=== PATIENT | male | born 1990 | race Caucasian/White ===

== ENCOUNTER 2017-07-07 19:51 | Emergency (ER) | payer SELFPAY ==
[~2017-07-07 19:51] MED LIST: LOR5/325 PO; METH-543 PO; ONDA4TAB PO; OXYC-865 PO
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
[2017-07-07] MEDS ORDERED: fentaNYL CITR 100 MCG/2 ML AMP IVP ONE (20:10)
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
[2017-07-07] MEDS ORDERED: APAP/HYDROCODONE 325/5 TAB PO ONE (22:35)
[2017-07-07] MEDS ORDERED: ACET/HYDROC 5/325MG TH ER ONLY 2 TAB/BOTTLE PO ONE (22:35)
[2017-07-07] MEDS ORDERED: LOR5/325 PO (22:36)
[2017-07-07 22:55] VITALS: BP 128/82
== END 2017-07-07 22:54 | disposition home or self-care (01) ==
LOC: ER 20:01
DX: S70.01XA Contusion of right hip, initial encounter (principal); S80.11XA Contusion of right lower leg, initial encounter; S83.91XA Sprain of unspecified site of right knee, initial encounter; S93.401A Sprain of unspecified ligament of right ankle, initial encounter; S80.811A Abrasion, right lower leg, initial encounter; V87.8XXA Person injured in other specified noncollision transport accidents involving motor vehicle (traffic), initial encounter
CPT/HCPCS: 72100; 73502; 73552; 73564; 73590; 73610; 96374; 99284; J3010

== ENCOUNTER 2017-08-15 20:04 | Emergency (ER) | payer SELFPAY ==
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
[2017-08-15] MEDS ORDERED: APAP/HYDROCODONE 325/5 TAB PO ONE (20:25)
--- NOTE | 2017-08-15 21:11 | RADIOLOGY IMAGING REPORT ---
FACILITY: [facility] [place] PATIENT NAME: Oscar Pierre : 1990 MR: [id number] V: [id number] EXAM DATE: ORDERING PHYSICIAN: KEVIN QUIROGA TECHNOLOGIST: Location: [facility] Patient: Oscar Pierre : 1990 Visit/Account:[id number] Date of Sevice: 08/15/2017 ANKLE 3 VIEW MIN RIGHT HISTORY: fall with pain Three-view examination right ankle FINDINGS: No acute fracture. The distal tibia and fibular well-maintained. Ankle mortise intact. No joint effus ion. The talus, calcaneus and mid foot structures are well-maintained. IMPRESSION: 1. Negative right ankle Report Dictated By: Ahmet Herrera MD at 08/15/2017 9:07 PM Report E-Signed By: Ahmet Herrera MD at 08/15/2017 9:08 PM WSN:[id number]
--- NOTE | 2017-08-15 21:12 | RADIOLOGY IMAGING REPORT ---
FACILITY: [facility] [place] PATIENT NAME: Oscar Pierre : 1990 MR: [id number] V: [id number] EXAM DATE: ORDERING PHYSICIAN: KEVIN QUIROGA TECHNOLOGIST: Location: [facility] [place] Patient: Oscar Pierre : 1990 Visit/Account:[id number] Date of Sevice: 08/15/2017 KNEE 4 VIEW RIGHT HISTORY: fall with pain 4 view examination FINDINGS: No acute bony pathology. The distal femur and proximal tibia/fibular well-maintained. Patella is inta ct. No patellar fracture. No joint effusion. On the AP film there is a slight medial offset of the pa tella but on the patellar sunrise views there is no patellar tilt or translation. IMPRESSION: 1 negative right knee for acute bony pathology Report Dictated By: Ahmet Herrera MD at 08/15/2017 9:08 PM Report E-Signed By: Ahmet Herrera MD at 08/15/2017 9:10 PM WSN:[id number]
[2017-08-15] MEDS ORDERED: HYDR-385 PO ×2 (21:35→21:39)
[2017-08-15] MEDS ORDERED: ACET/HYDROC 5/325MG TH ER ONLY 2 TAB/BOTTLE PO ONE (21:45)
[2017-08-15 21:56] VITALS: BP 128/58
== END 2017-08-15 21:56 | disposition home or self-care (01) ==
LOC: ER 20:25
DX: S83.91XA Sprain of unspecified site of right knee, initial encounter (principal); V86.56XA Driver of dirt bike or motor/cross bike injured in nontraffic accident, initial encounter; Y93.I9 Activity, other involving external motion
CPT/HCPCS: 73564; 99282; L1830

== ENCOUNTER 2017-09-03 20:19 | Emergency (ER) | payer SELFPAY ==
[~2017-09-03 20:19] MED LIST changes: +HYDR-385 PO
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
[2017-09-03] MEDS ORDERED: IBUPROFEN 600 MG TAB PO ONE (20:55)
[2017-09-03] MEDS ORDERED: ACET/HYDROC 5/325MG TH ER ONLY 2 TAB/BOTTLE PO ONE (21:55)
[2017-09-03 22:00] VITALS: BP 119/70
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
== END 2017-09-03 22:07 | disposition home or self-care (01) ==
LOC: ER 20:45
DX: S16.1XXA Strain of muscle, fascia and tendon at neck level, initial encounter (principal)
CPT/HCPCS: 72040; 99284

== ENCOUNTER 2017-10-28 22:04 | Emergency (ER) | payer SELFPAY ==
[2017-10-28] MEDS ORDERED: NS(*) 0.9% 1000 ML BAG 1,000 ML IV ONE (22:23)
--- NOTE | 2017-10-28 22:23 | ER Report ---
History and Physical Time Seen By MD: 22:15 HPI/ROS CHIEF COMPLAINT: Abdominal cramps HISTORY OF PRESENT ILLNESS: 27-year-old male presents ambulatory to the ER complaining of severe abdominal cramps. Patient states he's been doubled over for several hours with nausea and vomiting. He has history of multiple abdominal surgeries. He has chronic diarrhea. He notes that he ate a large amount of began yesterday, which causing his pain to be worse. She describes similar episodes that make him double over with severe crampy pain intermittently lasting several hours at a time. REVIEW OF SYSTEMS: Respiratory: No cough, no dyspnea. Cardiovascular: No chest pain, no palpitations. Gastrointestinal: As above Musculoskeletal: No back pain. Allergies: Coded Allergies: Penicillins (Verified Allergy, Severe, SEIZURE, 09/03/17) amoxicillin (Verified Allergy, Severe, seizure, 09/03/17) haloperidol (Verified Allergy, Severe, SEIZURES, FOAMING AT THE MOUTH, 09/03) Home Meds Active Scripts Dicyclomine Hcl (DICYCLOMINE HCL) 10 Mg Capsule, 1-2 MG PO QID Y for crampy abdominal pain relief, #60 CAPSULE Prov:FABIO LORENZO Benedict DO 10/28/17 Ondansetron (ZOFRAN ODT) 4 Mg Tab.rapdis, 4 MG PO every 6 hours Y for NAUSEA/ VOMITING, #15 TAB TAKE 1 TABLET BY MOUTH EVERY 12 HOURS Prov:BJFABIO Benedict DO 10/28/17 Lorazepam (ATIVAN) 1 Mg Tablet, 1 MG PO Q6H Y for ANXIETY, #15 Prov:FABIO LORENZO DO 10/28/17 Hydroxyzine Hcl (HYDROXYZINE HCL) 25 Mg Tablet, 1-2 CAP PO Q6H Y for vomiting, anxiety, itching, #30 Prov:FABIO LORENZO Benedict DO 10/28/17 Reviewed Nurses Notes: Yes Old Medical Records Reviewed: Yes Hx Substance Use Disorder: Yes (MARIJUANA) Hx Alcohol Use: Yes Constitutional Vital Sign - Last 24 Hours 10/28/17 10/28/17 10/28/17 10/28/17 22:09 22:10 22:19 22:30 Temp 98.1 Pulse 117 97 Resp 18 B/P (MAP) 146/96 146/96 (113) 141/82 (101) Pulse Ox 97 96 O2 Delivery Room Air 10/28/17 10/28/17 10/28/17 10/28/17 22:34 22:49 22:54 22:55 Pulse 95 91 Pulse Ox 95 84 98 O2 Flow Rate 2.0 10/28/17 10/28/17 10/28/17 10/28/17 23:00 23:24 23:30 23:35 Pulse 73 76 B/P (MAP) 125/78 (94) 122/59 (80) Pulse Ox 97 97 10/28/17 23:55 B/P (MAP) 122/77 (92) Physical Exam General Appearance: The patient is alert, has no immediate need for airway protection and no current signs of toxicity. Vital signs stable, afebrile, pulse ox normal HEENT: Pupils equal and round no injection. Oropharynx without redness or exudate Respiratory: Chest is non tender, lungs are clear to auscultation. Cardiac: regular rate and rhythm Gastrointestinal: Abdomen is soft, there are numerous well-healed surgical scars insistent with his past medical history. And non tender, no masses, bowel sounds normal. Musculoskeletal: Neck: Neck is supple and non tender. Extremities have full range of motion and are non tender. Skin: No rashes or lesions. DIFFERENTIAL DIAGNOSIS: After history and physical exam differential diagnosis was considered for abdominal pain including but not limited to appendicitis, cholecystitis, gastritis, bowel obstruction, colic, IBS and urinary tract infection. Medical Decision Making Data Points Result Diagram: 10/28/17222410/28/172224 Laboratory Hematology Test 10/28/17 22:10 10/28/17 22:25 Urine Color Yellow Urine Clarity Clear Urine pH 5.0 pH (4.8-9.5) Urine Specific [place] 1.020 Urine Protein Negative mg/dL (NEGATIVE) Urine Glucose (UA) Negative mg/dL (NEGATIVE) Urine Ketones Trace mg/dL (NEGATIVE) Urine Blood Negative (NEGATIVE) Urine Nitrite Negative (NEGATIVE) Urine Bilirubin Negative (NEGATIVE) Urine Urobilinogen 2.0 mg/dL (0.2-1.9) Urine Leukocyte Esterase Negative (NEGATIVE) Urine RBC <1 /HPF (0-2/HPF) Urine WBC 2 /HPF (0-5/HPF) Urine Squamous Epithelial Cells Few /LPF (</=FEW) Urine Bacteria Negative /HPF (NONE-FEW) Urine Mucus Few /HPF (NONE-FEW) Red Blood Count 4.93 M/uL (4.00-5.60) Mean Corpuscular Volume 87.5 fL (80.0-96.0) Mean Corpuscular Hemoglobin 30.1 pg (26.0-33.0) Mean Corpuscular Hemoglobin Concent 34.4 g/dL (32.0-36.0) Red Cell Distribution Width 17.5 % (11.5-14.5) Mean Platelet Volume 6.5 fL (7.2-11.1) Neutrophils (%) (Auto) 39.0 % (39.4-72.5) Lymphocytes (%) (Auto) 42.9 % (17.6-49.6) Monocytes (%) (Auto) 14.7 % (4.1-12.4) Eosinophils (%) (Auto) 1.2 % (0.4-6.7) Basophils (%) (Auto) 2.2 % (0.3-1.4) Nucleated RBC Relative Count (auto) 0.1 /100WBC Neutrophils # (Auto) 2.2 K/uL (2.0-7.4) Lymphocytes # (Auto) 2.4 K/uL (1.3-3.6) Monocytes # (Auto) 0.8 K/uL (0.3-1.0) Eosinophils # (Auto) 0.1 K/uL (0.0-0.5) Basophils # (Auto) 0.1 K/uL (0.0-0.1) Nucleated RBC Absolute Count (auto) 0.00 K/uL Sodium Level 140 mmol/L (137-145) Potassium Level 3.6 mmol/L (3.5-5.0) Chloride Level 105 mmol/L (98-107) Carbon Dioxide Level 20 mmol/L (22-30) Blood Urea Nitrogen 9 mg/dl (9-21) Creatinine 0.70 mg/dl (0.66-1.25) Glomerular Filtration Rate Calc > 60.0 Random Glucose 95 mg/dl (75-110) Calcium Level 8.9 mg/dl (8.4-10.2) Total Bilirubin 0.6 mg/dl (0.2-1.3) Aspartate Amino Transf (AST/SGOT) 45 U/L (0-35) Alanine Aminotransferase (ALT/SGPT) 36 U/L (0-56) Alkaline Phosphatase 97 U/L (0-126) Total Protein 7.8 g/dl (6.3-8.2) Albumin 4.3 g/dl (3.5-5.0) Amylase Level 135 U/L (0-110) Lipase 235 U/L (23-300) Chemistry Test 10/28/17 22:10 10/28/17 22:25 Urine Color Yellow Urine Clarity Clear Urine pH 5.0 pH (4.8-9.5) Urine Specific [place] 1.020 Urine Protein Negative mg/dL (NEGATIVE) Urine Glucose (UA) Negative mg/dL (NEGATIVE) Urine Ketones Trace mg/dL (NEGATIVE) Urine Blood Negative (NEGATIVE) Urine Nitrite Negative (NEGATIVE) Urine Bilirubin Negative (NEGATIVE) Urine Urobilinogen 2.0 mg/dL (0.2-1.9) Urine Leukocyte Esterase Negative (NEGATIVE) Urine RBC <1 /HPF (0-2/HPF) Urine WBC 2 /HPF (0-5/HPF) Urine Squamous Epithelial Cells Few /LPF (</=FEW) Urine Bacteria Negative /HPF (NONE-FEW) Urine Mucus Few /HPF (NONE-FEW) White Blood Count 5.6 k/uL (4.5-11.0) Red Blood Count 4.93 M/uL (4.00-5.60) Hemoglobin 14.8 g/dL (14.0-18.0) Hematocrit 43.1 % (42.0-52.0) Mean Corpuscular Volume 87.5 fL (80.0-96.0) Mean Corpuscular Hemoglobin 30.1 pg (26.0-33.0) Mean Corpuscular Hemoglobin Concent 34.4 g/dL (32.0-36.0) Red Cell Distribution Width 17.5 % (11.5-14.5) Platelet Count 348 K/uL (150-450) Mean Platelet Volume 6.5 fL (7.2-11.1) Neutrophils (%) (Auto) 39.0 % (39.4-72.5) Lymphocytes (%) (Auto) 42.9 % (17.6-49.6) Monocytes (%) (Auto) 14.7 % (4.1-12.4) Eosinophils (%) (Auto) 1.2 % (0.4-6.7) Basophils (%) (Auto) 2.2 % (0.3-1.4) Nucleated RBC Relative Count (auto) 0.1 /100WBC Neutrophils # (Auto) 2.2 K/uL (2.0-7.4) Lymphocytes # (Auto) 2.4 K/uL (1.3-3.6) Monocytes # (Auto) 0.8 K/uL (0.3-1.0) Eosinophils # (Auto) 0.1 K/uL (0.0-0.5) Basophils # (Auto) 0.1 K/uL (0.0-0.1) Nucleated RBC Absolute Count (auto) 0.00 K/uL Glomerular Filtration Rate Calc > 60.0 Calcium Level 8.9 mg/dl (8.4-10.2) Total Bilirubin 0.6 mg/dl (0.2-1.3) Aspartate Amino Transf (AST/SGOT) 45 U/L (0-35) Alanine Aminotransferase (ALT/SGPT) 36 U/L (0-56) Alkaline Phosphatase 97 U/L (0-126) Total Protein 7.8 g/dl (6.3-8.2) Albumin 4.3 g/dl (3.5-5.0) Amylase Level 135 U/L (0-110) Lipase 235 U/L (23-300) Urinalysis Test 10/28/17 22:10 Urine Color Yellow Urine Clarity Clear Urine pH 5.0 pH (4.8-9.5) Urine Specific [place] 1.020 Urine Protein Negative mg/dL (NEGATIVE) Urine Glucose (UA) Negative mg/dL (NEGATIVE) Urine Ketones Trace mg/dL (NEGATIVE) Urine Blood Negative (NEGATIVE) Urine Nitrite Negative (NEGATIVE) Urine Bilirubin Negative (NEGATIVE) Urine Urobilinogen 2.0 mg/dL (0.2-1.9) Urine Leukocyte Esterase Negative (NEGATIVE) Urine RBC <1 /HPF (0-2/HPF) Urine WBC 2 /HPF (0-5/HPF) Urine Squamous Epithelial Cells Few /LPF (</=FEW) Urine Bacteria Negative /HPF (NONE-FEW) Urine Mucus Few /HPF (NONE-FEW) EKG/Imaging Imaging X-ray: KUB was obtained. I viewed the images myself on the PACS system. My interpretation of the images is: Nonspecific bowel gas pattern, no evidence of bowel obstruction. The radiologist interpretation had no clinically significant variation from this interpretation. ED Course/Re-evaluation Clinical Indication for ER IV: Hydration, IV Access ED Course Patient was admitted to an examination room. H&P was done. The differential diagnoses was considered. On clinical examination. Patient has a benign nonsurgical abdomen. He has significant pain, left lower quadrant. Diagnostic studies are unremarkable. Patient's treated with IV fluid hydration, Zofran, fentanyl. Patient's 3 way of the abdomen was unremarkable. Patient described bouts of colic or IBS that are severe in nature doubling over to the point where he nearly passes out. He has hyperventilation syndrome secondary to the pain. Patient just moved here. He does not have a physician yet. I spoke with him at length after his results were unremarkable. We developed a plan to treat some of his symptoms symptomatically medication. She will be given hydroxyzine for for nausea and anxiety control. Patient's given dicyclomine for symptomatic relief of crampy abdominal pain. Patient was given subungual Zofran to control his nausea and vomiting. Patient was given a few Ativan for anxiety attacks. Patient advised to follow-up with primary care and get established. Decision to Disposition Date: Oct 28, 2017 Decision to Disposition Time: 23:45 Depart Departure Latest Vital Signs Vital Signs Date Time Temp Pulse Resp B/P (MAP) Pulse Ox O2 Delivery O2 Flow Rate FiO2 10/28/17 23:55 122/77 (92) 10/28/17 23:35 76 97 10/28/17 22:55 2.0 10/28/17 22:09 98.1 18 Room Air Impression: Primary Impression: Abdominal cramps Additional Impression: History of major abdominal surgery Condition: Improved Disposition: HOME OR SELF-CARE Referrals: ALFRED CORONA MD, FARRUKH MD New Scripts Dicyclomine Hcl (DICYCLOMINE HCL) 10 Mg Capsule 1-2 MG PO QID Y for crampy abdominal pain relief, #60 CAPSULE Prov: FABIO LORENZO DO 10/28/17 Ondansetron (ZOFRAN ODT) 4 Mg Tab.rapdis 4 MG PO every 6 hours Y for NAUSEA/VOMITING, #15 TAB TAKE 1 TABLET BY MOUTH EVERY 12 HOURS Prov: FABIO LORENZO DO 10/28/17 Lorazepam (ATIVAN) 1 Mg Tablet 1 MG PO Q6H Y for ANXIETY, #15 Prov: FABIO LORENZO DO 10/28/17 Hydroxyzine Hcl (HYDROXYZINE HCL) 25 Mg Tablet 1-2 CAP PO Q6H Y for vomiting, anxiety, itching, #30 Prov: FABIO LORENZO DO 10/28/17 Patient Instructions: Anxiety (ED), Clear Liquid Diet (ED), Irritable Bowel Syndrome (ED) Additional Instructions: Follow-up with Dr. Corona or Bill Problem Qualifiers FABIO LORENZO DO Oct 28, 2017 22:23
[2017-10-28] MEDS ORDERED: ONDANSETRON 4 MG/2 ML VIAL IVP ONE (22:25)
[2017-10-28] MEDS ORDERED: fentaNYL CITR 100 MCG/2 ML AMP IVP ONE (22:25)
[2017-10-28 22:37] LABS: PLATELET COUNT, AUTOMATED 348 K/uL (150-450)
--- NOTE | 2017-10-28 23:21 | RADIOLOGY IMAGING REPORT ---
[place] [facility] [place]: Oscar Pierre : 1990 MR: [id number] V: [id number] EXAM DATE: ORDERING PHYSICIAN: FABIO LORENZO TECHNOLOGIST: Location: [facility] - [place] Patient: Oscar Pierre : 1990 Visit/Account:[id number] Date of Sevice: 10/28/2017 Abdomen: Indication: Left lower quadrant pain. Technique: A single supine film was obtained. Comparison: 11/21/2016 Findings: The intestinal gas pattern is unremarkable. There is no evidence of obstruction or focal di latation. No suspicious calcifications are identified. The skeletal and soft tissue structures appear unremarkable. IMPRESSION: No evidence of obstruction or other acute process. Report Dictated By: Micheal Tyson MD at 10/28/2017 11:16 PM Report E-Signed By: Micheal Tyson MD at 10/28/2017 11:17 PM WSN:[id number]
[2017-10-28] MEDS ORDERED: LORA-1456 PO (23:51)
[2017-10-28] MEDS ORDERED: HYDR-4225 PO (23:51)
[2017-10-28] MEDS ORDERED: ONDA4TAB PO (23:51)
[2017-10-28 23:55] VITALS: BP 122/77
[2017-10-28] MEDS ORDERED: DICY10CA11 PO (23:55)
[2017-10-29] MEDS ORDERED: hydrOXYzine 25 MG TAB TH 2 TAB/BOTTLE PO ONE
[2017-10-29] MEDS ORDERED: ONDANSETRON 4 MG ODT TH SL ONE
[2017-11-07] MEDS ORDERED: HYOS-50 SL (10:14)
[2017-11-07] MEDS ORDERED: HYDR-4225 PO (10:14)
[2017-11-07] MEDS ORDERED: ESCI10TA8 PO (10:14)
== END 2017-10-29 00:11 | disposition home or self-care (01) ==
LOC: ER 22:24
DX: R10.32 Left lower quadrant pain (principal)
CPT/HCPCS: 74018; 81001; 82150; 83690; 85025; 96374; 96375; 99283; J2405; J3010; J7030; S0119; 82040; 82247; 82310; 82374; 82435; 82565; 82947; 84075; 84132; 84155; 84295; 84450; 84460; 84520

== ENCOUNTER 2018-07-21 10:40 | Emergency (ER) | payer SELFPAY ==
[~2018-07-21 10:40] MED LIST changes: +DICY10CA11 PO; +ESCI10TA8 PO; +HYDR-4225 PO; +HYOS-50 SL; +LORA-1456 PO
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
[2018-07-21] MEDS ORDERED: KETOROLAC 60 MG/2 ML VIAL IM ONE (11:15)
[2018-07-21] MEDS ORDERED: ORPHENADRINE 60MG/2ML INJ IM ONE (11:15)
--- NOTE | 2018-07-21 12:27 | RADIOLOGY IMAGING REPORT ---
[place] [facility] [place]: Oscar Pierre : 1990 MR: [id number] V: [id number] EXAM DATE: ORDERING PHYSICIAN: MORENITA CRUZ TECHNOLOGIST: [place] [facility] [place] : 1990 Visit/Account:[id number] Date of Sevice: 07/21/2018 EXAMINATION: CT cervical spine without IV contrast HISTORY: Snowboarding accident one week ago. Neck pain. TECHNIQUE: Thin axial CT images of the cervical spine were obtained without IV contrast, with sagit eddy and coronal 2D reconstructed images. One of the following dose optimization techniques was utilized in the performance of this exam: Autom ated exposure control; adjustment of the mA and/or kV according to the patient's size; or use of an i terative reconstruction technique. Specific details can be referenced in the facility's radiology C T exam operational policy. COMPARISON: Cervical spine radiographs 09/03/2017. FINDINGS: The cervical spine is negative for acute fracture or subluxation. Normal alignment. Vertebral body height and disc spaces are preserved. The dens is intact. The craniocervical junction demonstrates normal alignment. IMPRESSION: Negative cervical spine CT. Report Dictated By: Luis Lopez MD at 07/21/2018 12:18 PM Report E-Signed By: Luis oLpez MD at 07/21/2018 12:22 PM WSN:[id number]
--- NOTE | 2018-07-21 12:31 | RADIOLOGY IMAGING REPORT ---
[place] [facility] [place] NAME: Oscar Pierre : 1990 MR: [id number] V: [id number] EXAM DATE: ORDERING PHYSICIAN: MORENITA CRUZ TECHNOLOGIST: [place] [facility] [place] : 1990 Visit/Account:[id number] Date of Sevice: 07/21/2018 EXAMINATION: CT thoracic spine without IV contrast HISTORY: Trauma. Snowboarding injury. TECHNIQUE: Thin axial CT images of the thoracic spine were obtained without IV contrast, with sagit eddy and coronal 2D reconstructed images. One of the following dose optimization techniques was utilized in the performance of this exam: Autom ated exposure control; adjustment of the mA and/or kV according to the patient's size; or use of an i terative reconstruction technique. Specific details can be referenced in the facility's radiology C T exam operational policy. COMPARISON: PA and lateral chest radiographs 03/07/2017. FINDINGS: The thoracic spine is negative for acute fracture or subluxation. Normal alignment. Vertebral body he ight is maintained throughout the thoracic spine. Posterior elements are intact. Paraspinal soft tissues are unremarkable by CT. IMPRESSION: No acute osseous findings along the thoracic spine. Report Dictated By: Luis Lopez MD at 07/21/2018 12:22 PM Report E-Signed By: Luis Lopez MD at 07/21/2018 12:25 PM WSN:[id number]
[2018-07-21] MEDS ORDERED: CYCL10TA29 PO (12:53)
[2018-07-21 12:58] VITALS: BP 114/74
== END 2018-07-21 13:04 | disposition home or self-care (01) ==
LOC: ER 11:09
DX: M43.6 Torticollis (principal); M54.12 Radiculopathy, cervical region
CPT/HCPCS: 72125; 72128; 96372; 99284; J1885; J2360; L0172